=== PATIENT | female | born 1995 | race Caucasian/White ===

== ENCOUNTER 2022-06-20 14:04 | Emergency (ER) | payer OTHER ==
[~2022-06-20] VITALS: Ht 167.6 cm; Wt 64.4 kg
[~2022-06-20 14:04] MED LIST: ERYT1OIN LEFTEYE
== END 2022-06-20 14:21 | disposition home or self-care (01) ==
LOC: ER 14:04
DX: M25.562 Pain in left knee (principal)
CPT/HCPCS: 99282

== ENCOUNTER → 2022-07-29 | Outpatient (CLI) | payer OTHER ==
[2022-08-02 11:10] LABS: HPV 16 Negative (Negative); HPV 18 Negative (Negative); HPV OTHER HR TYPES Negative (Negative)
== END | disposition home or self-care (01) ==
LOC: LAB 16:38 → RAD SHORT 16:38
PROVIDERS: Obstetrics & Gynecology
DX: Z01.419 Encounter for gynecological examination (general) (routine) without abnormal findings (principal)
CPT/HCPCS: 87624; G0123

== ENCOUNTER → 2022-08-08 | Outpatient (CLI) | payer OTHER ==
[2022-08-09 15:10] LABS: HPV 16 Negative (Negative); HPV 18 Negative (Negative); HPV OTHER HR TYPES Negative (Negative)
== END ==
LOC: LAB 08:00 → LAB SHORT 08:00
PROVIDERS: Obstetrics & Gynecology
DX: Z87.42 Personal history of other diseases of the female genital tract (principal)
CPT/HCPCS: 87624; G0123

== ENCOUNTER → 2024-06-04 | Outpatient (CLI) | payer OTHER ==
[2024-06-04 18:59] LABS: Source, Urine Clean Catch
[2024-06-04 19:29] LABS: Appearance, Urine Clear (Clear); Bilirubin, Urine Neg (Neg); Blood, Urine Neg (Neg); Glucose Qualitative, Urine Neg (Neg); Ketones, Urine Neg (Neg); Leukocyte Esterase, Urine Neg (Neg); Nitrite, Urine Neg (Neg); Protein, Urine Neg (Neg); Specific Gravity, Urine 1.005 (1.003-1.022); Urobilinogen, Urine NORM (Normal)
[2024-06-04 19:35] LABS: BASOPHILS ABSOLUTE AUTO 0.04 K/mm3 (0.00-0.23); BASOPHILS PERCENT AUTO 1 % (0-2); EOSINOPHILS ABSOLUTE AUTO 0.14 K/mm3 (0.00-0.68); EOSINOPHILS PERCENT AUTO 2 % (0-6); Hematocrit 36.7 % (33.0-51.0); Hemoglobin 12.8 g/dL (11.5-16.0); IMMATURE GRAN ABSOLUTE AUTO 0.01 K/mm3 (0.00-0.10); IMMATURE GRAN PERCENT AUTO 0 % (0-1); LYMPHOCYTES ABSOLUTE AUTO 1.47 K/mm3 (0.84-5.20); LYMPHOCYTES PERCENT AUTO 19 % (21-46); MONOCYTES ABSOLUTE AUTO 0.56 K/mm3 (0.16-1.47); MONOCYTES PERCENT AUTO 7 % (4-13); Mean Corpuscular HGB Conc 34.9 g/dL (31.5-36.5); Mean Corpuscular Volume 92 fL (80-100); Mean Platelet Volume 9.5 fL (9.1-12.4); NEUTROPHILS ABSOLUTE AUTO 5.45 K/mm3 (1.96-9.15); NEUTROPHILS PERCENT AUTO 71 % (41-73); Platelet Count 291 K/mm3 (150-400); RDW Coefficient Variation 11.5 % (11.7-14.2); RDW Standard Deviation 38.6 fL (35.1-46.3); White Blood Cell Count 7.67 K/mm3 (4.00-11.30)
[2024-06-04 19:45] LABS: Color, Urine Pale Yellow (P-Yellow)
[2024-06-04 19:53] LABS: Thyroid Stimulating Hormone 1.77 uIU/mL (0.360-4.800)
[2024-06-07 10:44] LABS: HEPATITIS B SURFACE ANTIGEN Negative (Negative)
[2024-06-07 11:07] LABS: HEPATITIS C AB CIA INTERP Negative (Negative)
[2024-06-07 11:27] LABS: HIV 1,2 COMBO ANTIGEN/ANTIBODY Negative (Negative)
== END | disposition home or self-care (01) ==
LOC: LAB SHORT 18:56 → LAB 18:56
PROVIDERS: Registered Nurse Community Health
DX: Z34.91 Encounter for supervision of normal pregnancy, unspecified, first trimester (principal)
CPT/HCPCS: 81003; 84443; 84702; 86803; 87086; 87340; 87389

== ENCOUNTER 2024-06-05 12:48 | Emergency (ER) | payer OTHER ==
[~2024-06-05] VITALS: Ht 167.6 cm; Wt 64.9 kg
[2024-06-05 14:23] LABS: Source, Urine Clean Catch
[2024-06-05 14:31] LABS: BASOPHILS ABSOLUTE AUTO 0.04 K/mm3 (0.00-0.23); BASOPHILS PERCENT AUTO 0 % (0-2); EOSINOPHILS ABSOLUTE AUTO 0.13 K/mm3 (0.00-0.68); EOSINOPHILS PERCENT AUTO 1 % (0-6); Hemoglobin 12.7 g/dL (11.5-16.0); IMMATURE GRAN ABSOLUTE AUTO 0.02 K/mm3 (0.00-0.10); IMMATURE GRAN PERCENT AUTO 0 % (0-1); LYMPHOCYTES PERCENT AUTO 16 % (21-46); MONOCYTES ABSOLUTE AUTO 0.53 K/mm3 (0.16-1.47); MONOCYTES PERCENT AUTO 6 % (4-13); Mean Corpuscular HGB 31.7 pg (26.0-34.0); Mean Corpuscular HGB Conc 35.3 g/dL (31.5-36.5); Mean Corpuscular Volume 90 fL (80-100); Mean Platelet Volume 8.8 fL (9.1-12.4); NEUTROPHILS ABSOLUTE AUTO 7.22 K/mm3 (1.96-9.15); NEUTROPHILS PERCENT AUTO 77 % (41-73); Platelet Count 277 K/mm3 (150-400); RDW Coefficient Variation 11.3 % (11.7-14.2); RDW Standard Deviation 37.2 fL (35.1-46.3); Red Blood Cell Count 4.01 M/mm3 (3.80-5.20); White Blood Cell Count 9.44 K/mm3 (4.00-11.30)
[2024-06-05 14:33] LABS: Bilirubin, Urine Neg (Neg); Blood, Urine Neg (Neg); Glucose Qualitative, Urine Neg (Neg); Ketones, Urine Neg (Neg); Leukocyte Esterase, Urine Neg (Neg); Nitrite, Urine Neg (Neg); Protein, Urine Neg (Neg); Specific Gravity, Urine 1.005 (1.003-1.022); Urobilinogen, Urine NORM (Normal)
[2024-06-05 14:50] LABS: Albumin/Globulin Ratio 1.1 (0.8-1.8); Bilirubin, Total 0.3 mg/dL (0.1-1.0); Bun/Creatinine Ratio 15.3 (12.0-20.0); Creatinine, Blood 0.66 mg/dL (0.40-1.00); Globulin, Blood 3.6 g/dL (2.2-4.0); Potassium, Blood 3.6 mmol/L (3.5-5.5); Total Protein, Blood 7.6 g/dL (6.4-8.2)
[2024-06-05 15:32] LABS: Appearance, Urine Clear (Clear); Color, Urine Pale Yellow (P-Yellow)
[2024-06-05 16:30] VITALS: BP 119/54
== END 2024-06-05 16:30 | disposition home or self-care (01) ==
LOC: ER 12:48
PROVIDERS: Student in an Organized Health Care Education/Training Program
DX: O20.8 Other hemorrhage in early pregnancy (principal); Z3A.09 9 weeks gestation of pregnancy
CPT/HCPCS: 76801; 80053; 81003; 81025; 84703; 85025; 86900; 86901; 99284-25

== ENCOUNTER → 2024-06-15 | Outpatient (CLI) | payer OTHER ==
[2024-06-18 19:18] LABS: APTIMA MEDIA TYPE Urine; C. TRACHOMATIS BY TMA Negative (Negative); N. GONORRHOEAE BY TMA Negative (Negative); SPECIMEN SOURCE Urine
== END ==
LOC: LAB 17:01 → LAB SHORT 17:01
PROVIDERS: Registered Nurse Community Health
DX: Z34.91 Encounter for supervision of normal pregnancy, unspecified, first trimester (principal)
CPT/HCPCS: 87491; 87591

== ENCOUNTER → 2024-10-27 | Outpatient (CLI) | payer OTHER ==
[2024-10-27 14:32] LABS: Hematocrit 32.9 % (33.0-51.0); Hemoglobin 11.2 g/dL (11.5-16.0)
== END ==
LOC: LAB 13:18 → LAB SHORT 13:18
PROVIDERS: Registered Nurse Community Health
DX: Z34.93 Encounter for supervision of normal pregnancy, unspecified, third trimester (principal)
CPT/HCPCS: 82950; 85014; 85018

== ENCOUNTER → 2024-12-20 | Outpatient (CLI) | payer OTHER | LOC: LAB SHORT 15:31 → LAB 15:31 | DX: Z34.93 Encounter for supervision of normal pregnancy, unspecified, third trimester (principal) | CPT/HCPCS: 87081; 87150 ==

== ENCOUNTER 2025-01-18 09:01 | Inpatient (IN) | payer SELFPAY ==
[2025-01-18] VITALS (28 sets, daily range): BP systolic 101–130; BP diastolic 56–84
[~2025-01-18] VITALS: Ht 167.6 cm; Wt 79.0 kg
[2025-01-18] MEDS ORDERED: Lactated Ringer's 1,000 ML IV PRN ×2 (09:15)
[2025-01-18] MEDS ORDERED: Acetaminophen 500 MG Tab PO PRN (09:15)
[2025-01-18] MEDS ORDERED: Penicillin G Potassium 5,000,000 UNITS in NS 250 ML IV ONE (09:15)
[2025-01-18] MEDS ORDERED: OXYTOCIN/RINGER'S LACTATE 500 ML IV PRN (09:15)
[2025-01-18] MEDS ORDERED: Calcium Carbonate 500 MG Tab Chew PO SCH (09:15)
[2025-01-18] MEDS ORDERED: Carboprost Tromethamine 250 MCG/ML 1ML Amp IM PRN ×2 (09:15→22:40)
[2025-01-18] MEDS ORDERED: FentaNYL 2mcg/ml-Bup 0.1% Epd 250 ML EPI PRN (09:15)
[2025-01-18] MEDS ORDERED: Oxytocin 10 Unit / ML Vial IM PRN (09:15)
[2025-01-18] MEDS ORDERED: Ondansetron HCl 2 MG / ML 2ML Vial IV PRN (09:15)
[2025-01-18] MEDS ORDERED: ePHEDrine Sulfate 50 MG/ML 1ML Injection XX PRN (09:15)
[2025-01-18] MEDS ORDERED: Misoprostol 200 MCG Tab BC PRN (09:15)
[2025-01-18] MEDS ORDERED: Lactated Ringer's 1,000 ML IV SCH ×3 (09:15→22:35)
[2025-01-18] MEDS ORDERED: Misoprostol 200 MCG Tab PR PRN ×2 (09:15→22:40)
[2025-01-18] MEDS ORDERED: Methylergonovine Maleate 0.2MG / ML 1ML Amp IM PRN ×2 (09:15→22:40)
[2025-01-18] MEDS ORDERED: Tranexamic Acid 100 ML IV SCH (09:30)
[2025-01-18] MEDS ORDERED: PRENATAL 19 TA1 EAC3 PO (09:51)
[2025-01-18 10:10] LABS: BASOPHILS ABSOLUTE AUTO 0.03 K/mm3 (0.00-0.23); BASOPHILS PERCENT AUTO 0 % (0-2); EOSINOPHILS ABSOLUTE AUTO 0.06 K/mm3 (0.00-0.68); EOSINOPHILS PERCENT AUTO 1 % (0-6); Hematocrit 36.2 % (33.0-51.0); Hemoglobin 12.6 g/dL (11.5-16.0); IMMATURE GRAN ABSOLUTE AUTO 0.04 K/mm3 (0.00-0.10); IMMATURE GRAN PERCENT AUTO 0 % (0-1); LYMPHOCYTES ABSOLUTE AUTO 1.11 K/mm3 (0.84-5.20); LYMPHOCYTES PERCENT AUTO 9 % (21-46); MONOCYTES ABSOLUTE AUTO 0.66 K/mm3 (0.16-1.47); MONOCYTES PERCENT AUTO 5 % (4-13); Mean Corpuscular HGB 31.8 pg (26.0-34.0); Mean Corpuscular HGB Conc 34.8 g/dL (31.5-36.5); Mean Corpuscular Volume 91 fL (80-100); Mean Platelet Volume 9.5 fL (9.1-12.4); NEUTROPHILS ABSOLUTE AUTO 10.57 K/mm3 (1.96-9.15); NEUTROPHILS PERCENT AUTO 85 % (41-73); Platelet Count 199 K/mm3 (150-400); RDW Coefficient Variation 12.8 % (11.7-14.2); RDW Standard Deviation 42.3 fL (35.1-46.3); Red Blood Cell Count 3.96 M/mm3 (3.80-5.20); White Blood Cell Count 12.47 K/mm3 (4.00-11.30)
[2025-01-18] MEDS ORDERED: Penicillin G Potassium 2,500,000 UNITS in Dextrose 5% 100 ML IV SCH (14:30)
[2025-01-18] MEDS ORDERED: FentaNYL Citrate 50 MCG/ML 2 ML Injection IV ONE (18:40)
[2025-01-18] MEDS ORDERED: Acetaminophen 325 MG TABLET PO PRN (22:35)
[2025-01-18] MEDS ORDERED: Ketorolac Tromethamine 30mg Vial IV PRN (22:35)
[2025-01-18] MEDS ORDERED: Ibuprofen 400 MG Tab PO PRN (22:35)
[2025-01-18] MEDS ORDERED: Docusate Sodium 100 MG Cap PO PRN (22:35)
[2025-01-18] MEDS ORDERED: Witch Hazel/Glycerin PADS TOP PRN (22:35)
[2025-01-18] MEDS ORDERED: Benzocaine Topical Anesthetic Spray 60GM TOP PRN (22:40)
[2025-01-18] MEDS ORDERED: OxyCODONE 5 mg/Acetamin 325 mg TABLET PO PRN (22:40)
[2025-01-18] MEDS ORDERED: OXYTOCIN/RINGER'S LACTATE 500 ML IV SCH (22:40)
[2025-01-18] MEDS ORDERED: Acetaminophen/Codeine 300-30 mg PO PRN (22:40)
[2025-01-18] MEDS ORDERED: Oxytocin 10 Unit / ML Vial IM ONE (22:45)
[2025-01-19] VITALS: BP 119/62
[2025-01-19 00:14] VITALS: BP 110/59
[2025-01-19] MEDS ORDERED: Methylergonovine Maleate 0.2MG / ML 1ML Amp IV ONE (02:07)
[2025-01-19 05:14] VITALS: BP 109/57
[2025-01-19 05:56] LABS: BASOPHILS ABSOLUTE AUTO 0.03 K/mm3 (0.00-0.23); BASOPHILS PERCENT AUTO 0 % (0-2); EOSINOPHILS ABSOLUTE AUTO 0.02 K/mm3 (0.00-0.68); EOSINOPHILS PERCENT AUTO 0 % (0-6); Hematocrit 32.9 % (33.0-51.0); Hemoglobin 11.2 g/dL (11.5-16.0); IMMATURE GRAN ABSOLUTE AUTO 0.09 K/mm3 (0.00-0.10); IMMATURE GRAN PERCENT AUTO 1 % (0-1); LYMPHOCYTES ABSOLUTE AUTO 1.22 K/mm3 (0.84-5.20); LYMPHOCYTES PERCENT AUTO 6 % (21-46); MONOCYTES ABSOLUTE AUTO 1.18 K/mm3 (0.16-1.47); MONOCYTES PERCENT AUTO 6 % (4-13); Mean Corpuscular HGB 31.5 pg (26.0-34.0); Mean Corpuscular Volume 93 fL (80-100); Mean Platelet Volume 9.6 fL (9.1-12.4); NEUTROPHILS ABSOLUTE AUTO 17.05 K/mm3 (1.96-9.15); NEUTROPHILS PERCENT AUTO 87 % (41-73); Platelet Count 211 K/mm3 (150-400); RDW Coefficient Variation 12.9 % (11.7-14.2); Red Blood Cell Count 3.55 M/mm3 (3.80-5.20); White Blood Cell Count 19.59 K/mm3 (4.00-11.30)
[2025-01-19 07:10] VITALS: BP 102/57
--- NOTE | 2025-01-19 07:31 | NUR ---
BEFORE PT UP TO BATHROOM, UTERUS DISPLACED TO PT RT SIDE, AFTER BATHROOM UTERUS CENTER, PT CONCERNED WITH VAG BLEEDING, SHE HAS LIGHT PERIODS, EXPLAINED THE BLEEDING SHE HAS IS NORMAL AND WENT OVER WHEN TO CALL BOB CHANG, (SOAKING AN ORANGE PAD AND HOUR, PASSING CLOTS THE SIZE OF WALNUTS, OR FOUL SMELLING VAG BLEEDING.) PT VERBALIZED UNDERSTANDING SHE WANTS TO GO HOME BLAIR TO GET TO [place] TO SEE BABY. WAITING FOR CARDIOLOGY CONSULT
--- NOTE | 2025-01-19 07:35 | NUR ---
PT WORKING ON PAPER WORK FOR DISCHARGE, WANT TO GET UP TO [place] TO SEE BABY
[2025-01-19] MEDS ORDERED: Prenatal Vit/FE Fumarate/FA 1 Tab PO SCH (09:00)
[2025-01-19] MEDS ORDERED: IBUP800 PO (09:02)
--- NOTE | 2025-01-19 09:19 | NUR ---
CARDIOLOGY CONSULTE DCD, TO FOLLOW UP WITH OUTPATIENT, PT WANTS TO GET TO [facility] TO SEE BABY. BOB CNM WILL REFER PT TO OUTPATIENT CARDIOLOGY.
[2025-01-19 09:45] VITALS: BP 111/65
--- NOTE | 2025-01-19 09:50 | NUR ---
DC INSTRUCTINOS GONE OVER WITH PT, READY TO DC HOME, GETTING ROOM PACKED UP AND PHONECALL FOR FRIDAY AT 0900 FOR PPFU, SANDEE SAW PT FOR SCORE OF 9 ON PPD ASSESSMENT, PT IS MOTIVATED TO LEAVE TO SEE BABY, HAS EXPRESSED COLSTRUM IN BAG OF ICE
--- NOTE | 2025-01-19 10:05 | NUR ---
DC HOME WITH FAMILY, FAMILY IS DRIVING PT UP TO [place] TO SEE BABY. PT HAS PPFU PHONE CALL FOR FRIDAY, COPY OF DC INSTRUCTIONS, PHONE NUMBERS TO BOB CNM AND [facility] IF HAS QUESTIONS,
== END 2025-01-19 10:10 | disposition home or self-care (01) | DRG 807 ==
LOC: OBS 09:01 → BC 09:05 → OBS 09:14 → BC 09:15
PROVIDERS: ADMIT Registered Nurse Community Health
PROC: 4A1HXCZ Monitoring of Products of Conception, Cardiac Rate, External Approach (ICD-10-PCS; principal; 2025-01-18)
PROC: 10E0XZZ Delivery of Products of Conception, External Approach (ICD-10-PCS; 2025-01-18)
PROC: 0HQ9XZZ Repair Perineum Skin, External Approach (ICD-10-PCS; 2025-01-18)
DX: O42.02 Full-term premature rupture of membranes, onset of labor within 24 hours of rupture (principal); Z37.0 Single live birth; O77.0 Labor and delivery complicated by meconium in amniotic fluid; O70.0 First degree perineal laceration during delivery; Z3A.41 41 weeks gestation of pregnancy; O48.0 Post-term pregnancy
CPT/HCPCS: 36415; 51702; 85025; 86850; 86900; 86901; 93005; 93010; A9270; J1885; J2210; J2540; J2590; J3010; J7050; J7120